=== PATIENT | female | born 1995 | race African-American/Black ===

== ENCOUNTER 2018-10-28 14:05 | Emergency (ER) | payer MEDICAID, OTHER ==
[~2018-10-28] VITALS: Ht 172.7 cm; Wt 118.0 kg
[2018-10-28 14:20] VITALS: BP 138/88
== END 2018-10-28 18:17 | disposition home or self-care (01) ==
LOC: ER 14:05
DX: J06.9 Acute upper respiratory infection, unspecified (principal); Z98.890 Other specified postprocedural states
CPT/HCPCS: 71045; 81025; 87070; 87430; 99284